=== PATIENT | female | born 1935 | race Caucasian/White ===

== ENCOUNTER 2017-09-15 15:09 | Inpatient (IN) ==
[2017-09-15] MEDS ORDERED: SODIUM CHLORIDE 0.9% 500 ML IV STA (16:02)
[2017-09-15 16:42] LABS: Basophils # 0.2 10*3/uL (0.0-0.2); Basophils % 0.9 % (0.0-0.8); Eosinophils # 0.3 10*3/uL (0.0-0.87); Eosinophils % 1.8 % (0.00-10.9); Hematocrit 26.9 VOL% (35.7-47.0); Hemoglobin 8.7 GM/DL (12.0-16.0); Immature Granulocytes % 1.2 %; Immature Granulocytes Absolute 0.21 #; Lymphocytes # 2.2 10*3/uL (1.4-4.0); Lymphocytes % 12.9 % (21.3-54.2); Mean Corpuscular HGB Conc 32.3 GM/DL (32-36); Mean Corpuscular Hemoglobin 31 PG (27-34); Mean Corpuscular Volume 97.1 FL (87-102); Mean Platelet Volume 11.6 FL (9.6-12.0); Monocytes # 3.5 10*3/uL (0.11-0.8); Monocytes % 20.3 % (1.7-12.7); NRBC # 0.04 10*3/uL; Neutrophils # 10.9 10*3/uL (1.4-7.4); Neutrophils % 62.9 % (38.7-73.9); Platelet Count 500 T/CUMM (130-400); Red Blood Count 2.77 MC/CUMM (3.8-5.5); Red Cell Distribution Width 16.1 % (9.3-17.3); White Blood Count 17.3 T/CUMM (4-12)
[2017-09-15 16:50] LABS: PT Patient Result 10.4 SECS
[2017-09-15 16:51] LABS: ABG HCO3 26.2 MMOL/L (20-26); ABG Oxygen Saturation 98.2 % (95-100); ABG PCO2 42.9 MM HG (35-48); ABG PH 7.405 (7.35-7.45)
[2017-09-15 16:54] LABS: Apearance,Urine Slightly Hazy (Clear); Bacteria,Urine Occasional /HPF (Few); Bilirubin,Urine Negative (Negative); Blood, Urine Negative (Negative); Glucose,Urine (UA) Negative (Negative); Ketones,Urine 5 mg/dL (Negative); Mucus,Urine Occasional /LPF (Occasional); Nitrite,Urine Negative (Negative); Protein,Urine 30 MG/DL; RBC,Urine <1 /HPF (0-4); Urine Color Yellow (Yellow); Urine Urobilinogen < 2.0 EU/DL (0.2-1.0); WBC,Urine 2 /HPF (0-6)
[2017-09-15 16:54] LABS: Ammonia 18 UMOL/L (11-32)
[2017-09-15 17:21] LABS: Alanine Aminotransferase 11 U/L (13-56); Albumin 2.3 G/DL (3.4-5.0); Alkaline Phosphatase 96 U/L (45-117); Aspartate Amino Transferase 50 U/L (0-37); Blood Urea Nitrogen 33 MG/DL (7-18); Calcium 12.2 MG/DL (8.5-10.1); Glucose 93 MG/DL (74-106); Osmolality,Calculated 279.8 MOS/KG (273-304); Potassium 3.8 MMOL/L (3.5-5.1); Sodium 137 MMOL/L (136-145); Total Protein 6.7 G/DL (6.4-8.3); Troponin I Only < 0.015 NG/ML (0.00-0.045)
[2017-09-15 19:35] LABS: Eosinophils 2 % (0-10); Lymphocytes 18 % (20-55); Segmented Neutrophils 74 % (50-85); Total Cells Counted 100
[2017-09-15 19:36] LABS: Macrocytosis 2+; Platelet Estimate Increased
[2017-09-15] MEDS ORDERED: traMADol 50 MG TABLET PO PRN (20:35)
[2017-09-15] MEDS ORDERED: ALBUTEROL/IPRATROPIUM 3 ML NEB RESP TX PRN (20:35)
[2017-09-15] MEDS ORDERED: LACTULOSE 20 GM/30 ML UDCUP PO PRN (20:35)
[2017-09-15] MEDS ORDERED: ONDANSETRON 4 MG/2 ML VIAL IV PRN (20:35)
[2017-09-15] MEDS ORDERED: ACETAMINOPHEN 325 MG TABLET PO PRN (20:35)
[2017-09-15] MEDS ORDERED: NITROFURANTOIN MACRO/MONO 100 MG CAPSULE ONE (20:57)
[2017-09-15] MEDS ORDERED: cefTRIAXone 1,000 MG VIAL ONE (20:59)
[2017-09-15] MEDS ORDERED: SODIUM CHLORIDE 0.9% 100 ML IV ONE (20:59)
[2017-09-15] MEDS: SODIUM CHLORIDE 0.9% 1,000 ML IV SCH (21:11)
[2017-09-15] MEDS: cefTRIAXone 1,000 MG in SYRINGE 1 EACH IV SCH (21:11)
[2017-09-15] MEDS ORDERED: DOCUSATE SODIUM 100 MG CAPSULE ONE (21:59)
[2017-09-15] MEDS: CALCITONIN 400 UNIT/2 ML VIAL IM SCH (22:10)
[2017-09-15] MEDS: NITROFURANTOIN MACRO/MONO 100 MG CAPSULE PO SCH (22:10)
[2017-09-15] MEDS: DOCUSATE SODIUM 100 MG CAPSULE PO SCH (22:10)
[2017-09-16 06:43] LABS: Basophils # 0.1 10*3/uL (0.0-0.2); Basophils % 0.7 % (0.0-0.8); Eosinophils # 0.2 10*3/uL (0.0-0.87); Eosinophils % 0.9 % (0.00-10.9); Hemoglobin 8.3 GM/DL (12.0-16.0); Immature Granulocytes % 1.4 %; Immature Granulocytes Absolute 0.23 #; Lymphocytes # 1.8 10*3/uL (1.4-4.0); Lymphocytes % 10.3 % (21.3-54.2); Mean Corpuscular HGB Conc 31.9 GM/DL (32-36); Mean Corpuscular Hemoglobin 32 PG (27-34); Mean Corpuscular Volume 99.2 FL (87-102); Mean Platelet Volume 12.4 FL (9.6-12.0); Monocytes % 17.8 % (1.7-12.7); NRBC # 0.04 10*3/uL; Neutrophils # 11.7 10*3/uL (1.4-7.4); Neutrophils % 68.9 % (38.7-73.9); Platelet Count 495 T/CUMM (130-400); Red Blood Count 2.62 MC/CUMM (3.8-5.5); Red Cell Distribution Width 16.6 % (9.3-17.3)
[2017-09-16 06:58] LABS: Albumin 2.1 G/DL (3.4-5.0); Bilirubin,Total 0.7 MG/DL (0.2-1.0); Calcium 11.6 MG/DL (8.5-10.1); Osmolality,Calculated 285.3 MOS/KG (273-304); Potassium 4.1 MMOL/L (3.5-5.1); Risk Ratio 4.54; Total Protein 5.8 G/DL (6.4-8.3); VLDL CHOLESTEROL 30.2 MG/DL
[2017-09-16 07:04] LABS: Eosinophils 1 % (0-10); Giant Platelets Few; Hypochromasia 1+; Lymphocytes 8 % (20-55); Macrocytosis Slight; Platelet Estimate Adequate; Segmented Neutrophils 76 % (50-85); Total Cells Counted 100
[2017-09-16 07:57] LABS: Basophils # 0.1 10*3/uL (0.0-0.2); Basophils % 0.7 % (0.0-0.8); Eosinophils # 0.2 10*3/uL (0.0-0.87); Eosinophils % 1.2 % (0.00-10.9); Hematocrit 25.5 VOL% (35.7-47.0); Hemoglobin 8.2 GM/DL (12.0-16.0); Immature Granulocytes % 1.2 %; Immature Granulocytes Absolute 0.19 #; Lymphocytes # 1.8 10*3/uL (1.4-4.0); Lymphocytes % 11.2 % (21.3-54.2); Mean Corpuscular HGB Conc 32.2 GM/DL (32-36); Mean Corpuscular Hemoglobin 31 PG (27-34); Mean Corpuscular Volume 96.2 FL (87-102); Mean Platelet Volume 11.5 FL (9.6-12.0); Monocytes # 2.8 10*3/uL (0.11-0.8); Monocytes % 17.1 % (1.7-12.7); NRBC # 0.04 10*3/uL; Neutrophils # 11.3 10*3/uL (1.4-7.4); Neutrophils % 68.6 % (38.7-73.9); Platelet Count 519 T/CUMM (130-400); Red Blood Count 2.65 MC/CUMM (3.8-5.5); Red Cell Distribution Width 16.2 % (9.3-17.3); White Blood Count 16.5 T/CUMM (4-12)
[2017-09-16 08:14] LABS: Eosinophils 1 % (0-10); Hypochromasia 1+; Lymphocytes 10 % (20-55); Ovalocytes Slight; Segmented Neutrophils 76 % (50-85); Target Cells Slight; Total Cells Counted 100
[2017-09-16 08:15] LABS: Platelet Estimate Increased
[2017-09-16 08:19] LABS: Ferritin 1241.5 ng/ml (8-252)
[2017-09-16 08:28] LABS: Folate 14.6 NG/ML (5.4-24.0)
[2017-09-16] MEDS ORDERED: PANTOPRAZOLE 40 MG VIAL IV SCH (09:00)
[2017-09-16] MEDS ORDERED: NITROFURANTOIN MACRO/MONO 100 MG CAPSULE ONE (09:58)
[2017-09-16] MEDS ORDERED: DOCUSATE SODIUM 100 MG CAPSULE ONE (09:59)
[2017-09-16] MEDS ORDERED: PANTOPRAZOLE 40 MG TABLET PO ONE (09:59)
[2017-09-16] MEDS ORDERED: LISINOPRIL 10 MG TABLET ONE (09:59)
[2017-09-16] MEDS: DOCUSATE SODIUM 100 MG CAPSULE PO SCH ×2 (10:04→22:15)
[2017-09-16] MEDS: CITALOPRAM 20 MG TABLET PO SCH (10:04)
[2017-09-16] MEDS: NITROFURANTOIN MACRO/MONO 100 MG CAPSULE PO SCH (10:04)
[2017-09-16] MEDS: LISINOPRIL 10 MG TABLET PO SCH (10:05)
[2017-09-16] MEDS: PANTOPRAZOLE 40 MG TABLET PO SCH (10:05)
[2017-09-16] MEDS: CALCITONIN 400 UNIT/2 ML VIAL IM SCH ×2 (10:15→23:13)
[2017-09-16] MEDS: PREGABALIN 75 MG CAPSULE PO SCH ×2 (10:52→22:15)
[2017-09-16] MEDS: SODIUM CHLORIDE 0.9% 1,000 ML IV SCH ×3 (10:55→22:15)
[2017-09-16] MEDS: cefTRIAXone 1,000 MG in SYRINGE 1 EACH IV SCH (22:14)
[2017-09-17] MEDS: SODIUM CHLORIDE 0.9% 1,000 ML IV SCH ×2 (04:04→09:54)
[2017-09-17 08:22] LABS: Basophils # 0.1 10*3/uL (0.0-0.2); Basophils % 0.5 % (0.0-0.8); Eosinophils # 0.3 10*3/uL (0.0-0.87); Hemoglobin 7.2 GM/DL (12.0-16.0); Immature Granulocytes % 1.2 %; Immature Granulocytes Absolute 0.18 #; Lymphocytes # 1.9 10*3/uL (1.4-4.0); Lymphocytes % 12.8 % (21.3-54.2); Mean Corpuscular HGB Conc 32.7 GM/DL (32-36); Mean Corpuscular Hemoglobin 32 PG (27-34); Mean Corpuscular Volume 96.9 FL (87-102); Monocytes # 2.8 10*3/uL (0.11-0.8); Monocytes % 19.4 % (1.7-12.7); NRBC # 0.07 10*3/uL; Neutrophils # 9.2 10*3/uL (1.4-7.4); Neutrophils % 64.1 % (38.7-73.9); Platelet Count 452 T/CUMM (130-400); Red Blood Count 2.27 MC/CUMM (3.8-5.5); Red Cell Distribution Width 16.7 % (9.3-17.3); White Blood Count 14.4 T/CUMM (4-12)
[2017-09-17 08:44] LABS: Calcium 11.4 MG/DL (8.5-10.1); Eosinophils 4 % (0-10); Giant Platelets Few; Hypochromasia 1+; Lymphocytes 6 % (20-55); Osmolality,Calculated 292.6 MOS/KG (273-304); Ovalocytes Slight; Platelet Estimate Adequate; Potassium 3.9 MMOL/L (3.5-5.1); Segmented Neutrophils 74 % (50-85); Total Cells Counted 100
[2017-09-17] MEDS: CALCITONIN 400 UNIT/2 ML VIAL IM SCH ×2 (08:55→21:19)
[2017-09-17] MEDS: DOCUSATE SODIUM 100 MG CAPSULE PO SCH ×2 (09:00→21:16)
[2017-09-17] MEDS: LISINOPRIL 10 MG TABLET PO SCH (09:00)
[2017-09-17] MEDS: PANTOPRAZOLE 40 MG TABLET PO SCH (09:00)
[2017-09-17] MEDS: PREGABALIN 75 MG CAPSULE PO SCH ×2 (09:00→21:16)
[2017-09-17] MEDS: CITALOPRAM 20 MG TABLET PO SCH (09:10)
[2017-09-17 09:16] LABS: Total Protein 5.2 G/DL (6.4-8.3)
[2017-09-17] MEDS: FUROSEMIDE 40 MG/4 ML VIAL IV SCH (14:21)
[2017-09-17] MEDS: cefTRIAXone 1,000 MG in SYRINGE 1 EACH IV SCH (21:16)
[2017-09-18] MEDS: FUROSEMIDE 40 MG/4 ML VIAL IV SCH ×2 (01:51→16:15)
[2017-09-18] MEDS: SODIUM CHLORIDE 0.9% 1,000 ML IV SCH (02:16)
[2017-09-18 04:58] LABS: Basophils # 0.1 10*3/uL (0.0-0.2); Basophils % 0.8 % (0.0-0.8); Eosinophils # 0.3 10*3/uL (0.0-0.87); Eosinophils % 1.6 % (0.00-10.9); Hematocrit 23.4 VOL% (35.7-47.0); Hemoglobin 7.9 GM/DL (12.0-16.0); Immature Granulocytes % 1.2 %; Immature Granulocytes Absolute 0.19 #; Lymphocytes % 12.6 % (21.3-54.2); Mean Corpuscular HGB Conc 33.8 GM/DL (32-36); Mean Corpuscular Hemoglobin 32 PG (27-34); Mean Corpuscular Volume 95.1 FL (87-102); Mean Platelet Volume 11.9 FL (9.6-12.0); Monocytes # 2.6 10*3/uL (0.11-0.8); Monocytes % 16.7 % (1.7-12.7); NRBC # 0.06 10*3/uL; Neutrophils # 10.6 10*3/uL (1.4-7.4); Neutrophils % 67.1 % (38.7-73.9); Platelet Count 478 T/CUMM (130-400); Red Blood Count 2.46 MC/CUMM (3.8-5.5); Red Cell Distribution Width 16.9 % (9.3-17.3); White Blood Count 15.7 T/CUMM (4-12)
[2017-09-18 05:30] LABS: Calcium 11.7 MG/DL (8.5-10.1); Eosinophils 2 % (0-10); Giant Platelets Few; Lymphocytes 9 % (20-55); Osmolality,Calculated 284.1 MOS/KG (273-304); Platelet Estimate Adequate; Potassium 3.6 MMOL/L (3.5-5.1); Segmented Neutrophils 73 % (50-85); Total Cells Counted 100
[2017-09-18 05:31] LABS: Hypochromasia 1+; Ovalocytes Slight
[2017-09-18 07:56] LABS: Total Protein (Chem) 5.2 G/DL (6.4-8.3)
[2017-09-18] MEDS ORDERED: SODIUM CHLORIDE 0.9% 1,000 ML IV PRN (08:30)
[2017-09-18 09:32] LABS: Immuno Free Light Chain Kappa 5.07 MG/DL (0.33-1.94); Immuno Free Light Chain Lambda 2.8 MG/DL (0.57-2.63); Immuno Free Light Chain Ratio 1.81 MG/DL (0.26-1.65)
[2017-09-18 10:51] LABS: Albumin (SPE) 2.3 G/DL (3.2-5.3); Albumin (SPE) Rel % 44.3 %; Alpha 1 (SPE) 0.4 G/DL (0.1-0.4); Alpha 2 (SPE) 0.8 G/DL (0.4-1.0); Alpha 2 (SPE) Rel % 15.9 %; Beta (SPE) 0.7 G/DL (0.5-1.1); Beta (SPE) Rel % 12.6 %; Gamma (SPE) Rel % 20.2 %
[2017-09-18 11:33] LABS: INR 1.1; PT Patient Result 11.3 SECS
[2017-09-18] MEDS: DOCUSATE SODIUM 100 MG CAPSULE PO SCH ×2 (16:02→21:27)
[2017-09-18] MEDS: CITALOPRAM 20 MG TABLET PO SCH (16:02)
[2017-09-18] MEDS: PREGABALIN 75 MG CAPSULE PO SCH ×2 (16:03→21:27)
[2017-09-18] MEDS: PANTOPRAZOLE 40 MG TABLET PO SCH (16:04)
[2017-09-18] MEDS: LISINOPRIL 10 MG TABLET PO SCH (16:04)
[2017-09-18] MEDS: fentaNYL 100 MCG/2 ML VIAL IV PRN ×3 (16:10→21:18)
[2017-09-18] MEDS: cefTRIAXone 1,000 MG in SYRINGE 1 EACH IV SCH (21:19)
[2017-09-19] MEDS: FUROSEMIDE 40 MG/4 ML VIAL IV SCH (03:05)
[2017-09-19] MEDS: fentaNYL 100 MCG/2 ML VIAL IV PRN ×6 (03:15→18:45)
[2017-09-19] MEDS: SODIUM CHLORIDE 0.9% 1,000 ML IV SCH ×2 (05:00→21:30)
[2017-09-19 06:26] LABS: Basophils # 0.1 10*3/uL (0.0-0.2); Basophils % 0.6 % (0.0-0.8); Eosinophils # 0.1 10*3/uL (0.0-0.87); Eosinophils % 0.9 % (0.00-10.9); Hematocrit 24.2 VOL% (35.7-47.0); Immature Granulocytes % 0.8 %; Immature Granulocytes Absolute 0.13 #; Lymphocytes # 2.3 10*3/uL (1.4-4.0); Lymphocytes % 14.6 % (21.3-54.2); Mean Corpuscular HGB Conc 33.1 GM/DL (32-36); Mean Corpuscular Hemoglobin 32 PG (27-34); Mean Platelet Volume 11.5 FL (9.6-12.0); Monocytes # 2.8 10*3/uL (0.11-0.8); Monocytes % 17.4 % (1.7-12.7); NRBC # 0.08 10*3/uL; Neutrophils # 10.5 10*3/uL (1.4-7.4); Neutrophils % 65.7 % (38.7-73.9); Platelet Count 468 T/CUMM (130-400); Red Blood Count 2.52 MC/CUMM (3.8-5.5); Red Cell Distribution Width 17.2 % (9.3-17.3)
[2017-09-19 06:55] LABS: Band Neutrophils 1 % (0-10); Hypochromasia 1+; Lymphocytes 10 % (20-55); Segmented Neutrophils 76 % (50-85); Target Cells Slight; Total Cells Counted 100
[2017-09-19 06:56] LABS: Macrocytosis 1+; Polychromasia Slight
[2017-09-19 06:57] LABS: Howell-Jolly Bodies Slight
[2017-09-19 06:58] LABS: Calcium 13.4 MG/DL (8.5-10.1); Osmolality,Calculated 292.7 MOS/KG (273-304); Potassium 3.2 MMOL/L (3.5-5.1)
[2017-09-19] MEDS: CITALOPRAM 20 MG TABLET PO SCH (10:02)
[2017-09-19] MEDS: DOCUSATE SODIUM 100 MG CAPSULE PO SCH ×2 (10:02→21:00)
[2017-09-19] MEDS: PREGABALIN 75 MG CAPSULE PO SCH ×2 (10:02→21:00)
[2017-09-19] MEDS: LISINOPRIL 10 MG TABLET PO SCH (10:02)
[2017-09-19] MEDS: PANTOPRAZOLE 40 MG TABLET PO SCH (10:02)
[2017-09-19] MEDS ORDERED: ZOLEDRONIC ACID 4 MG in PREMIX 1 EACH IV ONE (10:54)
[2017-09-19] MEDS ORDERED: POTASSIUM CHLORIDE RIDER 10 MEQ in PREMIX 1 EACH IV ONE (11:00)
[2017-09-19 16:42] LABS: Apearance,Urine Slightly Hazy (Clear); Bilirubin,Urine Negative (Negative); Blood, Urine Small mg/dL (Negative); Glucose,Urine (UA) Negative (Negative); Hyaline Casts,Urine 4 /LPF (0-3); Ketones,Urine 20 mg/dL (Negative); Mucus,Urine Occasional /LPF (Occasional); Nitrite,Urine Negative (Negative); Protein,Urine Negative; RBC,Urine 1 /HPF (0-4); Squamous Epithelial Cell,Urine Occasional /HPF (0-10); Urine Color Yellow (Yellow); Urine Specific Gravity 1.012 (1.001-1.035); Urine Urobilinogen < 2.0 EU/DL (0.2-1.0); WBC,Urine 3 /HPF (0-6)
[2017-09-19] MEDS: cefTRIAXone 1,000 MG in SYRINGE 1 EACH IV SCH (22:00)
[2017-09-20] MEDS: fentaNYL 100 MCG/2 ML VIAL IV PRN ×6 (00:12→23:20)
[2017-09-20] MEDS: LORazepam 2 MG/1 ML VIAL IV PRN ×3 (01:21→21:26)
[2017-09-20 05:18] LABS: Basophils # 0.2 10*3/uL (0.0-0.2); Eosinophils # 0.1 10*3/uL (0.0-0.87); Eosinophils % 0.5 % (0.00-10.9); Hematocrit 23.7 VOL% (35.7-47.0); Hemoglobin 7.4 GM/DL (12.0-16.0); Immature Granulocytes % 1.4 %; Immature Granulocytes Absolute 0.23 #; Lymphocytes # 2.1 10*3/uL (1.4-4.0); Lymphocytes % 12.3 % (21.3-54.2); Mean Corpuscular HGB Conc 31.2 GM/DL (32-36); Mean Corpuscular Hemoglobin 31 PG (27-34); Mean Corpuscular Volume 99.2 FL (87-102); Mean Platelet Volume 11.7 FL (9.6-12.0); Monocytes # 2.8 10*3/uL (0.11-0.8); Monocytes % 16.9 % (1.7-12.7); Neutrophils # 11.3 10*3/uL (1.4-7.4); Neutrophils % 67.9 % (38.7-73.9); Platelet Count 451 T/CUMM (130-400); Red Blood Count 2.39 MC/CUMM (3.8-5.5); Red Cell Distribution Width 17.4 % (9.3-17.3); White Blood Count 16.6 T/CUMM (4-12)
[2017-09-20 05:57] LABS: Calcium 13.8 MG/DL (8.5-10.1); Osmolality,Calculated 306.7 MOS/KG (273-304); Potassium 3.5 MMOL/L (3.5-5.1)
[2017-09-20 05:59] LABS: Band Neutrophils 1 % (0-10); Eosinophils 1 % (0-10); Lymphocytes 13 % (20-55); Nucleated Red Blood Cells 2 (0-5); Segmented Neutrophils 76 % (50-85); Total Cells Counted 100
[2017-09-20 06:00] LABS: Hypochromasia 1+
[2017-09-20 06:01] LABS: Macrocytosis 1+; Platelet Estimate Increased; Polychromasia Slight; Target Cells Slight
[2017-09-20 06:02] LABS: Giant Platelets Few
[2017-09-20] MEDS: PANTOPRAZOLE 40 MG TABLET PO SCH (09:06)
[2017-09-20] MEDS: CITALOPRAM 20 MG TABLET PO SCH (09:06)
[2017-09-20] MEDS: DOCUSATE SODIUM 100 MG CAPSULE PO SCH ×2 (09:06→23:16)
[2017-09-20] MEDS: LISINOPRIL 10 MG TABLET PO SCH (09:06)
[2017-09-20] MEDS: PREGABALIN 75 MG CAPSULE PO SCH ×2 (09:06→23:16)
[2017-09-20] MEDS: DEXTROSE 5% NACL 0.45% 1,000 ML IV SCH ×2 (09:57→20:25)
[2017-09-20] MEDS: cefTRIAXone 1,000 MG in SYRINGE 1 EACH IV SCH (23:00)
[2017-09-21] MEDS: fentaNYL 100 MCG/2 ML VIAL IV PRN ×5 (04:59→21:06)
[2017-09-21] MEDS: LORazepam 2 MG/1 ML VIAL IV PRN ×2 (05:00→21:19)
[2017-09-21] MEDS: DEXTROSE 5% NACL 0.45% 1,000 ML IV SCH ×2 (07:00→17:12)
[2017-09-21] MEDS: CITALOPRAM 20 MG TABLET PO SCH (09:13)
[2017-09-21] MEDS: LISINOPRIL 10 MG TABLET PO SCH (09:13)
[2017-09-21] MEDS: PANTOPRAZOLE 40 MG TABLET PO SCH (09:13)
[2017-09-21] MEDS: DOCUSATE SODIUM 100 MG CAPSULE PO SCH ×2 (09:13→21:05)
[2017-09-21] MEDS: PREGABALIN 75 MG CAPSULE PO SCH ×2 (09:13→21:05)
[2017-09-21] MEDS: SODIUM CHLORIDE 0.9% 1,000 ML IV SCH (09:24)
[2017-09-21] MEDS ORDERED: TUBERCULIN SKIN TEST 0.1 ML SYRINGE INTRADERM ONE (15:00)
[2017-09-21] MEDS: cefTRIAXone 1,000 MG in SYRINGE 1 EACH IV SCH (21:06)
[2017-09-22] MEDS: DEXTROSE 5% NACL 0.45% 1,000 ML IV SCH ×3 (02:25→22:39)
[2017-09-22] MEDS: PREGABALIN 75 MG CAPSULE PO SCH ×2 (09:55→20:23)
[2017-09-22] MEDS: DOCUSATE SODIUM 100 MG CAPSULE PO SCH ×2 (09:55→20:23)
[2017-09-22] MEDS: LISINOPRIL 10 MG TABLET PO SCH (09:55)
[2017-09-22] MEDS: PANTOPRAZOLE 40 MG TABLET PO SCH (09:55)
[2017-09-22] MEDS: CITALOPRAM 20 MG TABLET PO SCH (09:55)
[2017-09-22] MEDS: fentaNYL 100 MCG/2 ML VIAL IV PRN ×4 (10:09→20:19)
[2017-09-22] MEDS: cefTRIAXone 1,000 MG in SYRINGE 1 EACH IV SCH (20:19)
[2017-09-22] MEDS: LORazepam 2 MG/1 ML VIAL IV PRN (20:19)
[2017-09-23] MEDS: DEXTROSE 5% NACL 0.45% 1,000 ML IV SCH (07:40)
[2017-09-23 08:33] VITALS: BP 146/59
[2017-09-23] MEDS: fentaNYL 100 MCG/2 ML VIAL IV PRN (10:25)
[2017-09-23] MEDS: CITALOPRAM 20 MG TABLET PO SCH (12:50)
[2017-09-23] MEDS: LORazepam 2 MG/1 ML VIAL IV PRN (12:50)
[2017-09-23] MEDS: DOCUSATE SODIUM 100 MG CAPSULE PO SCH (12:50)
[2017-09-23] MEDS: PREGABALIN 75 MG CAPSULE PO SCH (12:51)
[2017-09-23] MEDS: LISINOPRIL 10 MG TABLET PO SCH (12:51)
[2017-09-23] MEDS: PANTOPRAZOLE 40 MG TABLET PO SCH (12:51)
== END 2017-09-23 11:37 | disposition hospice, inpatient (51) | DRG 840 ==
LOC: EDUNIT# → N.ED 15:09 → N.EDINP 18:19 → N.TELEN 09-16 14:08
PROVIDERS: ADMIT Family Medicine; ATTEND Family Medicine